=== PATIENT | female | born 1945 | race Caucasian/White ===

== ENCOUNTER 2023-02-24 08:35 | Day surgery (SDC) | payer MEDICARE, BC ==
[~2023-02-24 08:35] MED LIST: Lactated Ringers 1,000 ML IV SCH; Sodium Chloride 0.9% 10 ML Syringe FLUSH PRN; Sodium Chloride 0.9% 10 ML Syringe FLUSH SCH
[2023-02-24] MEDS ORDERED: Propofol 200 MG/20 ML SDV ONE ×3 (10:57→11:19)
[2023-02-24] MEDS ORDERED: Lidocaine 1% 4 ML ONE (10:57)
[2023-02-24 13:22] VITALS: BP 134/88; PULSE 67
== END 2023-02-24 12:32 | disposition home or self-care (01) ==
LOC: JD.SDS 08:35
PROVIDERS: ATTEND Specialist
DX: K21.9 Gastro-esophageal reflux disease without esophagitis (principal); K44.9 Diaphragmatic hernia without obstruction or gangrene; K31.89 Other diseases of stomach and duodenum; K31.7 Polyp of stomach and duodenum; K25.9 Gastric ulcer, unspecified as acute or chronic, without hemorrhage or perforation; F41.9 Anxiety disorder, unspecified; F32.A Depression, unspecified; E03.9 Hypothyroidism, unspecified; Z88.0 Allergy status to penicillin; Z88.2 Allergy status to sulfonamides; Z88.5 Allergy status to narcotic agent; Z79.890 Hormone replacement therapy; Z79.899 Other long term (current) drug therapy; Z90.710 Acquired absence of both cervix and uterus; Z98.890 Other specified postprocedural states; Z90.49 Acquired absence of other specified parts of digestive tract
CPT/HCPCS: 43239; 43251; J2704; J7120; 00731; 99100; J3490

== ENCOUNTER 2023-08-10 07:30 | Day surgery (SDC) | payer MEDICARE, BC ==
[~2023-08-10 07:30] MED LIST changes: +Morphine 8 MG, EPINEPHrine 0.3 MG, Cefuroxime 750 MG, Ketorolac 30 MG, Sodium Chloride ... PRN
[2023-08-10] MEDS ORDERED: Propofol 200 MG/20 ML SDV ONE (08:21)
[2023-08-10] MEDS ORDERED: ceFAZolin 2 GM Vial ONE (08:21)
[2023-08-10] MEDS ORDERED: fentaNYL 100 MCG/2 ML SDV ONE (08:21)
[2023-08-10] MEDS ORDERED: Tranexamic Acid 1,000 MG/10 ML Vial ONE (09:04)
[2023-08-10] MEDS ORDERED: Vancomycin 1 GM SDV ONE (09:04)
[2023-08-10] MEDS ORDERED: Phenylephrine 1% 10 MG/ML SDV ONE (11:11)
[2023-08-10] MEDS ORDERED: Lactated Ringers 1,000 ML ONE (11:38)
[2023-08-10] MEDS ORDERED: Ondansetron 4 MG/2 ML SDV ONE (11:45)
[2023-08-10 15:51] VITALS: BP 125/55; PULSE 92
== END 2023-08-10 16:20 | disposition home or self-care (01) ==
LOC: JD.SDS 07:30
PROVIDERS: ATTEND Orthopaedic Surgery
DX: M16.12 Unilateral primary osteoarthritis, left hip (principal); K21.9 Gastro-esophageal reflux disease without esophagitis; E03.9 Hypothyroidism, unspecified; F32.A Depression, unspecified; F41.1 Generalized anxiety disorder; Z88.2 Allergy status to sulfonamides; Z79.890 Hormone replacement therapy; Z79.899 Other long term (current) drug therapy; Z88.0 Allergy status to penicillin; Z88.5 Allergy status to narcotic agent
CPT/HCPCS: 0055T; 27130; 36415; 73501; 86850; 86900; 86901; 97116; 97161; C1713; C1776; J0171; J0690; J0697; J1885; J2270; J2371; J2405; J2704; J3010; J3370; J7030; J7120; J3490

== ENCOUNTER 2023-11-30 20:18 | Emergency (ER) | payer MEDICARE, BC ==
[2023-11-30] MEDS: Ibuprofen 400 MG Tab PO ONE (21:07)
[2023-11-30] MEDS: Acetaminophen 325 MG Tab PO ONE (21:08)
[2023-11-30] MEDS: Lidocaine 1% 10 ML MDV INJECT ONE (21:50)
[2023-11-30 22:08] VITALS: BP 134/77; PULSE 75
== END 2023-11-30 22:27 | disposition home or self-care (01) ==
LOC: JD.ED 20:18
DX: S42.292A Other displaced fracture of upper end of left humerus, initial encounter for closed fracture (principal); E03.9 Hypothyroidism, unspecified; Z88.0 Allergy status to penicillin; Z88.2 Allergy status to sulfonamides; Z88.5 Allergy status to narcotic agent; Z79.899 Other long term (current) drug therapy; Z79.82 Long term (current) use of aspirin; W10.9XXA Fall (on) (from) unspecified stairs and steps, initial encounter; Y93.01 Activity, walking, marching and hiking
CPT/HCPCS: 73030-26-LT; 73030-LT; 73060-26-LT; 73060-LT; 99283; 99284; A9270-GY; J3490

== ENCOUNTER 2024-08-11 06:45 | Day surgery (SDC) | payer MEDICARE, BC ==
[~2024-08-11 06:45] MED LIST changes: +Clindamycin Phosphate in D5W 900 MG in Premix Bag 1 BAG IV ONE; -Lactated Ringers 1,000 ML IV SCH; -Morphine 8 MG, EPINEPHrine 0.3 MG, Cefuroxime 750 MG, Ketorolac 30 MG, Sodium Chloride ... PRN
[2024-08-11] MEDS: Lactated Ringers 1,000 ML IV SCH (07:00)
[2024-08-11] MEDS ORDERED: Propofol 200 MG/20 ML SDV ONE ×3 (07:29→09:02)
[2024-08-11] MEDS ORDERED: fentaNYL 100 MCG/2 ML SDV ONE (07:30)
[2024-08-11] MEDS ORDERED: Ropivacaine 0.5% 5 MG/ML 30 ML SDV ONE (07:31)
[2024-08-11] MEDS ORDERED: Ondansetron 4 MG/2 ML SDV ONE (07:31)
[2024-08-11] MEDS ORDERED: dexmedeTOMIDine HCl 200 MCG/2 ML SDV ONE (07:31)
[2024-08-11] MEDS ORDERED: Dexamethasone 4 MG/ML 5 ML MDV ONE (07:31)
[2024-08-11] MEDS ORDERED: EPINEPHrine 1 MG/ML SDV ONE (07:32)
[2024-08-11] MEDS ORDERED: Lidocaine 1% 2 ML ONE (08:08)
[2024-08-11] MEDS ORDERED: ePHEDrine 50 MG/ML SDV ONE (08:16)
[2024-08-11] MEDS: Morphine 8 MG, EPINEPHrine 0.3 MG, Cefuroxime 750 MG, Ketorolac 30 MG, Sodium Chloride ... PRN (09:05)
[2024-08-11] MEDS: VANCOmycin 1 GM SDV ONE (09:11)
[2024-08-11] MEDS: Tranexamic Acid 1,000 MG/10 ML Vial ONE (09:11)
[2024-08-11] MEDS: oxyCODONE 5 MG Tab PO ONE (12:41)
[2024-08-11] MEDS ORDERED: HYDROmorphone 0.5 MG/0.5 ML Syringe IVPUSH PRN (12:47)
[2024-08-11] MEDS ORDERED: fentaNYL 100 MCG/2 ML SDV IVPUSH PRN (12:47)
[2024-08-11] MEDS ORDERED: Ondansetron 4 MG/2 ML SDV IVPUSH PRN (12:47)
[2024-08-11 13:51] VITALS: BP 99/80; PULSE 67
== END 2024-08-11 13:33 | disposition home or self-care (01) ==
LOC: JD.SDS 06:45
PROVIDERS: ATTEND Orthopaedic Surgery
DX: M17.12 Unilateral primary osteoarthritis, left knee (principal); E03.9 Hypothyroidism, unspecified; Z88.0 Allergy status to penicillin; Z88.2 Allergy status to sulfonamides; Z88.5 Allergy status to narcotic agent; Z79.899 Other long term (current) drug therapy; Z79.890 Hormone replacement therapy
CPT/HCPCS: 0055T; 27447; 64447; 73560; 97110; 97116; 97162; A9270; C1713; C1776; J0171; J0697; J1100; J1885; J2272; J2405; J2704; J2795; J3010; J7120; 01400; 99100; J3490